=== PATIENT | male | born 1950 | race Caucasian/White ===

== ENCOUNTER → 2024-12-22 | Outpatient (CLI) | payer OTHER, SELFPAY ==
[2024-12-22 16:50] LABS: Basophils # (Auto) 0.1 Thou/mm3 (0.0-0.2); Basophils % (Auto) 1 % (0-2.5); Eosinophils # (Auto) 0.2 Thou/mm3 (0.0-0.5); Eosinophils % (Auto) 2 % (0-10); Hematocrit 44.6 % (41.0-53.0); Hemoglobin 14.6 g/dL (13.5-16.0); Immature Granulocytes % (Auto) 0 % (0-0); Immature Granulocytes Auto 0.02 Thou/mm3 (0.00-0.00); Lymphocytes # (Auto) 1.6 Thou/mm3 (1.0-4.8); Lymphocytes % (Auto) 19 % (10-50); Mean Corpuscular HGB Conc 32.7 g/dl (31.0-37.0); Mean Corpuscular Hemoglobin 27.9 pg (25.0-35.0); Mean Corpuscular Volume 85 fL (80-100); Monocytes # (Auto) 0.7 Thou/mm3 (0.0-0.8); Monocytes % (Auto) 8 % (0-12); Neutrophils # (Auto) 5.8 Thou/mm3 (1.8-7.7); Neutrophils % (Auto) 69 % (37-80); Nucleated Red Blood Cell % 0 /100 WBC (0); Platelet Count 258 Thou/mm3 (140-440); RDW Standard Deviation 43.3 fL (35.1-43.9); Red Blood Count 5.24 Miln/mm3 (4.50-5.90); White Blood Count 8.3 Thou/mm3 (3.8-10.6)
[2024-12-22 17:25] LABS: Alanine Aminotransferase 16 U/L (10-49); Albumin, Serum 4.4 gm/dL (3.4-4.8); Albumin/Globulin Ratio 1.8 (1.2-2.2); Alkaline Phosphatase 88 U/L (46-116); Anion Gap 8 (7-16); Aspartate Amino Transferase 18 U/L (0-34); BUN/Creatinine Ratio 12 Ratio (12-20); Bilirubin,Total 0.7 mg/dL (0.3-1.2); Blood Urea Nitrogen 14 mg/dL (9-23); Calcium 9.2 mg/dL (8.3-10.6); Calcium (Corrected) 9.2 mg/dL (8.5-10.1); Carbon Dioxide 30.9 mMol/L (20.0-31.0); Cardiac Risk Estimate 3.7 RATIO (4.0-6.7); Chloride 106 mMol/L (98-107); Cholesterol 175 mg/dL (132-200); Creatinine (Component) 1.2 mg/dL (0.6-1.3); Globulin 2.5 gm/dL (2.3-3.5); Glucose 103 mg/dL (74-106); HDL Cholesterol 47 mg/dL (40-60); LDL Cholesterol,Calculated 112 mg/dL (0-130); Osmolality,Calculated 289 (275-295); Potassium 5.3 mMol/L (3.4-5.1); Sodium 145 mMol/L (136-145); Thyroid Stimulating Hormone 2.43 uIU/mL (0.55-4.78); Total Protein 6.9 gm/dL (5.7-8.2); Triglycerides 79 mg/dL (30-150); eGFR > 60 See Note
== END | disposition home or self-care (01) ==
LOC: COPL 15:22
PROVIDERS: PCP Family Medicine; Referring Provider Nurse Practitioner Family; Visit Provider Nurse Practitioner Family
DX: Z00.00 Encounter for general adult medical examination without abnormal findings (principal); I10 Essential (primary) hypertension
CPT/HCPCS: 36415; 80053; 80061; 84443; 85025

== ENCOUNTER → 2024-12-26 | Outpatient (CLI) | payer OTHER, SELFPAY ==
[2025-01-01 07:08] LABS: Fecal Globin Result NOT DETECTED (NOT DETECTED)
== END | disposition home or self-care (01) ==
LOC: SLDO 13:38
PROVIDERS: PCP Nurse Practitioner Family; Referring Provider Nurse Practitioner Family; Visit Provider Nurse Practitioner Family
DX: Z00.00 Encounter for general adult medical examination without abnormal findings (principal)
CPT/HCPCS: 82274; G0328

== ENCOUNTER 2025-04-16 09:31 | Emergency (ER) | payer OTHER, SELFPAY ==
[2025-04-16 09:51] VITALS: BP 170/68; PULSE 100; RESP 18; TEMP 37.4; O2SAT 99
--- NOTE | 2025-04-16 10:17 | EDNOTE_ITS ---
<Statement entered by Abeba Chaudhry MD - 04/23/25 06:24> As co-signing physician, I was present and available for consult prn. I concur with the plan and care as documented by the midlevel provider. ED Male Genitalurinary RME/HPI General Chief complaint: General Adult/Misc Complain Stated complaint: BLADDER PROBLEMS Time Seen by Provider: 04/16/25 09:50 Source: patient Arrival date/time: 04/16/25 09:31 74-year-old male with no known medical history presents to the emergency room with a chief complaint of difficulty urinating and pain with urination x 1 month Mode of arrival: ambulatory Limitations: no limitations Related Data Previous Rx's ?Medication ?Instructions ?Recorded cephalexin 500 mg capsule 500 mg PO BID 7 days #14 cap s 04/16/25 tamsulosin 0.4 mg capsule (Flomax) 0.4 mg PO QDAY #30 caps 04/16/25 Allergies Allergy/AdvReac Type Severity Reaction Status Date / Time No Known Allergies Allergy Verified 04/16/25 09:34 Review of Systems Review of Systems Systems Reviewed: All systems reviewed, normal except as documented Constitutional Constitutional: Reports system reviewed and no additional complaints, except as documented, Denies fatigue, Denies fever(s), Denies headache(s) and Denies weakness Eyes Eyes: Reports system reviewed and no additional complaints, except as documented, Denies blurry vision and Denies change in vision ENT Ears, Nose, Mouth, and Throat: Reports system reviewed and no additional complaints, except as documented, Denies otalgia, Denies headache(s), Denies nasal congestion, Denies throat swelling and Denies vertigo Cardiovascular Cardiovascular: Reports system reviewed and no additional complaints, except as documented, Denies chest pain, Denies dyspnea and Denies dyspnea on exertion Respiratory Respiratory: Reports system reviewed and no additional complaints, except as documented, Denies chest congestion, Denies cough, Denies dyspnea, Denies dyspnea on exertion and Denies wheezing Gastrointestinal Gastrointestinal: Reports system reviewed and no additional complaints, except as documented, Denies abdominal pain, Denies cramping, Denies nausea and Denies vomiting Genitourinary Genitourinary: Reports system reviewed and no additional complaints, except as documented, Reports difficulty urinating, Reports dysuria and Reports hematuria Musculoskeletal Musculoskeletal: Reports system reviewed and no additional complaints, except as documented and Denies back pain Integumentary/Breasts Skin/Breast: Reports system reviewed and no additional complaints, except as documented and Denies wounds Neurologic Neurologic: Reports system reviewed and no additional complaints, except as documented, Denies confusion, Denies headache(s), Denies lack of coordination, Denies vertigo and Denies weakness Psychiatric Psychiatric: Reports system reviewed and no additional complaints, except as documented, Denies anxiety, Denies confusion, Denies depression, Denies paranoia, Denies suicidal ideation and Denies tactile hallucinations Endocrine Endocrine: Reports system reviewed and no additional complaints, except as documented and Denies fatigue Hematologic/Lymphatic Hematologic/Lymphatic: Reports system reviewed and no additional complaints, except as documented and Denies lymphadenopathy Allergic/Immunologic Allergic/Immunologic: Reports system reviewed and no additional complaints, except as documented, Denies throat swelling, Denies urticaria and Denies wheezing Past Medical History Social History SMOKING STATUS: Never smoker ED Exam General Limitations: Present no limitations General appearance: Present alert and in no apparent distress Head Head exam: Present atraumatic Eye Eye exam: Present normal appearance, PERRL and EOMI ENT ENT exam: Present normal exam, normal oropharynx and mucous membranes moist Neck Neck exam: Present normal inspection, full ROM and trachea midline Chest Chest inspection: Present normal inspection and symmetric chest wall rise Respiratory Respiratory exam: Present normal lung sounds bilaterally Cardiovascular Cardiovascular exam: Present regular rate, normal rhythm and normal heart sounds Abdominal Exam Abdominal exam: Present soft and normal bowel sounds; Absent distention, tender ness, guarding, rebound or rigidity Extremities Exam Extremities exam: Present normal inspection and full ROM Back Exam Back exam: Present normal inspection and full ROM Neurological Exam Neurological exam: Present alert, oriented X3 and CN II-XII intact Psychiatric Psychiatric exam: Present normal affect and normal mood Skin Skin exam: Present warm, dry, intact and normal color Course Quality Measures none Orders Category Date Time Status Yusuf [Urinary Catheter] QS Care 04/16/25 10:02 Active UA [Urinalysis] Stat Lab 04/16/25 10:48 Completed Urine Culture Stat Lab 04/16/25 10:48 Received Lidocaine Jelly 2% Urojet [Xylocaine Jelly 2% Urojet] Med 04/16/25 10:30 Discontinued See Dose Instructions TOP X1 ONE Vital Signs Vital signs: Vital Signs Temperature 99.3 F 04/16/25 09:51 Pulse Rate 100 04/16/25 09:51 Respiratory Rate 18 04/16/25 09:51 Blood Pressure 170/68 H 04/16/25 09:51 Pulse Oximetry (%) 99 04/16/25 09:51 Oxygen Delivery Method Room Air 04/16/25 09:51 O2 saturation 99% within normal limits Urogenital - Male MDM Narrative MDM Narrative:: 74-year-old male with no known medical history presents to the emergency room with a chief complaint of difficulty urinating and pain with urination x 1 month Patient is hemodynamically stable and in no apparent distress Physical examination shows tenderness and pain to the patient's lower part of his abdomen. The patient had a Yusuf catheter placed and about 1100 mL of urine drained. Yusuf catheter was then placed on the leg bag and attached to the patient's leg. The patient was discharged with antibiotics. UA was negative for any UTI. Patient was educated to follow-up with his primary care provider as he will need a referral to a urologist for further management Patient was discharged and educated to follow-up with primary care provider in the next 24 to 48 hours and return to the emergency room for any evidence of worsening signs or symptoms Patient data External records reviewed:: [facility] previous records Clinical information provided by:: patient Social determinants that could affect healthcare access:: none Patient has the following chronic illnesses:: No chronic illness How is presenting disease/condition affected by chronic disease/condition?: no chronic disease Evaluation data The following diagnostics were reviewed and interpreted by me:: lab results and radiology exam(s) Lab and/or radiology exams considered but not ordered:: Labs and radiology exams considered and ordered Interpretation Summary: N/A Medications / Prescriptions Medications or Prescriptions considered but not ordered:: Medication given Medication administrations:: Medication Administration History Discontinued Medications Lidocaine HCl (Lidocaine Jelly 2% (Urojet) 10 Ml Tube) 0 ml TOP X1 ONE Stop: 04/16/25 10:31 Last Admin: 04/16/25 10:52 Dose: 10 ml Documented By: ASHLEIGH Medication given Consultations Consultation(s) initiated? (list below): No Diagnosis Urogenital Male Differential Diagnosis: urinary tract infection, epididymitis, prostatitis and acute retention of urine Most likely diagnosis given after review of the tests above:: Acute retention of urine Admission Indicated Admission indicated?: not indicated Admission Request Was there a request for admission?: No Disposition Plan Disposition Plan: Discharge Discharge Attestation Discharge Attestation: The patient and all family members were given an opportunity to ask questions and understood the discharge instructions. Discharge instructions specifically effects, indications for sooner follow up or return to the emergency department, and the expected course of current diagnosis. Patient condition: Stable Discharge Plan Plan Patient Disposition: HOME (Self Care) Discharge Disposition comment: Stable Prescriptions/Referrals Prescriptions/Med Rec: New tamsulosin [Flomax] 0.4 mg capsule 0.4 mg PO QDAY Qty: 30 0RF cephalexin 500 mg capsule 500 mg PO BID 7 Days Qty: 14 0RF Referrals: Soraida Cruz NP [Primary Care Provider] - In 1 week Problem List Clinical Impression: Acute urinary retention Patient/Caregiver Discharge Instructions Education Materials: ED Urinary Retention, Male Additional Instructions: Please follow-up with your primary care provider in the next 24 to 48 hours Your primary care provider will send a referral to urologist to help you with your prostate issue. A urinary catheter was placed please keep it in place until you are seen and cleared by your urologist. For any evidence of worsening signs or symptoms return to the emergency room immediately Print Language: Tamazight Stand Alone Forms: Yee Award Info., Patient Portal Info Letter PA/MYLA Supervising Physician ILEANA/MYLA Supervising Physician: Dr. Mak
[2025-04-16] MEDS: LIDOCAINE JELLY 2% (Urojet) 10 ML TUBE TOP (10:52)
[2025-04-16 11:00] LABS: Collection Type, Urine Clean Catch
[2025-04-16 11:23] LABS: Bilirubin,Urine Negative (Negative); Blood,Urine Trace (Negative); Clarity,Urine Clear (Clear/Hazy); Color,Urine Yellow (Lt Yel-Yel); Glucose, Urine Negative (Negative); Ketones,Urine Negative (Negative); Leukocyte Esterase,Urine Negative (Negative); Nitrite,Urine Negative (Negative); PH,Urine 6.0 (5.0-7.0); Protein,Urine 2+ (Neg - Trace); RBC,Urine 15 /hpf (0-3); Specific Gravity,Urine 1.021 (1.001-1.035); Squamous Epithelial Cell,Urine < 1 /hpf (0-5); Urobilinogen,Urine Negative mg/dL (0.0-1.0); WBC,Urine 1 /hpf (0-5)
[2025-04-16 15:05] VITALS: BP 138/79; PULSE 72; RESP 16; TEMP 36.7; O2SAT 97
== END 2025-04-16 15:06 | disposition home or self-care (01) ==
PROVIDERS: Emergency Provider Nurse Practitioner Family; PCP Nurse Practitioner Family
DX: R33.9 Retention of urine, unspecified (principal)
CPT/HCPCS: 51702; 81001; 87086; 99284; A4314

== ENCOUNTER → 2025-04-20 | Outpatient (CLI) | payer OTHER, SELFPAY ==
[2025-04-20 11:37] LABS: PSA Medicare Annual Scrn 14.31 ng/mL (0-4.00)
== END | disposition home or self-care (01) ==
LOC: COPL 10:38
PROVIDERS: PCP Nurse Practitioner Family; Referring Provider Nurse Practitioner Family; Visit Provider Nurse Practitioner Family
DX: Z12.5 Encounter for screening for malignant neoplasm of prostate (principal)
CPT/HCPCS: 36415; 84153; G0103

== ENCOUNTER 2025-06-15 09:10 | Day surgery (SDC) | payer OTHER, SELFPAY ==
--- NOTE | 2025-06-13 07:00 | EKG_ITS ---
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
[2025-06-13 11:47] VITALS: BMI 42.3
[2025-06-13 12:24] LABS: Collection Type, Urine Catheter
[2025-06-13 12:40] LABS: Basophils # (Auto) 0.1 Thou/mm3 (0.0-0.2); Basophils % (Auto) 1 % (0-2.5); Eosinophils # (Auto) 0.2 Thou/mm3 (0.0-0.5); Eosinophils % (Auto) 3 % (0-10); Hematocrit 43.9 % (41.0-53.0); Hemoglobin 14.0 g/dL (13.5-16.0); Immature Granulocytes Auto 0.01 Thou/mm3 (0.00-0.00); Lymphocytes # (Auto) 1.2 Thou/mm3 (1.0-4.8); Lymphocytes % (Auto) 15 % (10-50); Mean Corpuscular HGB Conc 31.9 g/dl (31.0-37.0); Mean Corpuscular Hemoglobin 27.9 pg (25.0-35.0); Mean Corpuscular Volume 88 fL (80-100); Monocytes # (Auto) 0.7 Thou/mm3 (0.0-0.8); Monocytes % (Auto) 8 % (0-12); Neutrophils # (Auto) 6.1 Thou/mm3 (1.8-7.7); Neutrophils % (Auto) 74 % (37-80); Nucleated Red Blood Cell # 0.00 Thou/mm3 (0.00-0.00); Nucleated Red Blood Cell % 0 /100 WBC (0); Platelet Count 247 Thou/mm3 (140-440); RDW Standard Deviation 43.4 fL (35.1-43.9); Red Blood Count 5.02 Miln/mm3 (4.50-5.90); White Blood Count 8.2 Thou/mm3 (3.8-10.6)
[2025-06-13 12:55] LABS: Alanine Aminotransferase 19 U/L (10-49); Albumin, Serum 4.7 gm/dL (3.4-4.8); Albumin/Globulin Ratio 2.4 (1.2-2.2); Alkaline Phosphatase 95 U/L (46-116); Anion Gap 9 (7-16); Aspartate Amino Transferase 21 U/L (0-34); BUN/Creatinine Ratio 15 Ratio (12-20); Bilirubin,Total 0.7 mg/dL (0.3-1.2); Blood Urea Nitrogen 16 mg/dL (9-23); Calcium 9.3 mg/dL (8.3-10.6); Calcium (Corrected) 9.3 mg/dL (8.5-10.1); Carbon Dioxide 28.3 mMol/L (20.0-31.0); Chloride 106 mMol/L (98-107); Creatinine (Component) 1.1 mg/dL (0.6-1.3); Estimated Creatinine Clearance 92.4 mL/min (>60); Globulin 2.0 gm/dL (2.3-3.5); Glucose 104 mg/dL (74-106); Osmolality,Calculated 286 (275-295); Potassium 4.6 mMol/L (3.4-5.1); Sodium 143 mMol/L (136-145); Total Protein 6.7 gm/dL (5.7-8.2); eGFR > 60 See Note
[2025-06-13 13:23] LABS: Bacteria,Urine Rare; Bilirubin,Urine Negative (Negative); Blood,Urine 3+ (Negative); Clarity,Urine Turbid (Clear/Hazy); Color,Urine Yellow (Lt Yel-Yel); Glucose, Urine Negative (Negative); Ketones,Urine Negative (Negative); Leukocyte Esterase,Urine Positive (Negative); Nitrite,Urine Negative (Negative); PH,Urine 6.0 (5.0-7.0); Protein,Urine 2+ (Neg - Trace); RBC,Urine 60 /hpf (0-3); Specific Gravity,Urine 1.024 (1.001-1.035); Squamous Epithelial Cell,Urine < 1 /hpf (0-5); Urobilinogen,Urine Negative mg/dL (0.0-1.0); WBC,Urine 193 /hpf (0-5)
--- NOTE | 2025-06-14 14:10 | ESHP_ITS ---
RE: GEO MALHOTRA : 1950 DATE OF ADMISSION: 06/15/2025 HISTORY OF PRESENT ILLNESS: Patient is a 74-year-old gentleman. He was referred to me with a history of urinary retention and elevated PSA. His PSA is 14.31. Patient had previous history of slow urinary stream, passing small amount of urine before he went in urinary retention. There is no history of urinary burning, no blood in the urine, no history of kidney stones. PAST SURGICAL HISTORY: Anal fistula, vasectomy in the past. SOCIAL HISTORY: Patient has no children. ALLERGIES: NONE KNOWN. PAST MEDICAL HISTORY: He has a history of hypertension. HOME MEDICATIONS: He takes; 1. Norvasc. 2. Tamsulosin once a day. PHYSICAL EXAMINATION: HEENT: Normal. NECK: Supple. LUNGS: Clear. HEART: Sounds are normal. ABDOMEN: He is very obese, 315 pounds is his weight. GENITOURINARY: Phallus is normal. Testes are down in the scrotum. Rectal examination revealed moderately enlarged smooth prostate. IMPRESSION: 1. Prostatic obstruction. 2. Urinary retention. 3. Indwelling Yusuf catheter. 4. Prostatism. 5. History of elevated PSA of 14.31. 6. Morbid obesity. PLAN: Cystoscopy, transrectal prostatic ultrasound with ultrasound guided prostatic needle biopsy. Planned procedure risks and complications have been discussed with the patient. Patient has understood them and agreed to proceed. DT: 13:54:17 TT: 14:06:00 Ref: [id number] - TID: [id number]
--- NOTE | 2025-06-14 14:41 | SUR.PREOP ---
EKG reviewed with Dr Griffin.
--- NOTE | 2025-06-14 15:05 | SUR.PREOP ---
Pt did not answered, message left for pt to come in at 0930 tomorrow.
--- NOTE | 2025-06-14 15:10 | SUR.PREOP ---
Confirm with pt to come in at 0930 tomorrow.
[2025-06-15 10:13] VITALS: BP 143/89; PULSE 109; RESP 18; TEMP 36.7; O2SAT 95; BMI 39.9
--- NOTE | 2025-06-15 11:30 | XR_ITS ---
EXAMINATION: Transrectal prostate sonography Date and time: June 15, 2025, 1153 hours INDICATIONS: Prostate ultrasound guidance for biopsies by physician today Technique and findings: Transrectal prostate sonographic images Prostate volume 43.21 cc IMPRESSION: Transrectal prostate sonography
[2025-06-15 12:06] VITALS: BP 145/91; PULSE 97; RESP 19; TEMP 36.3; O2SAT 100
--- NOTE | 2025-06-15 12:06 | SUR.PHASEII ---
pt received from OR in recovery bay 5. pt awake and alert, breathing unlabored on room. v/s stable. pt has floyd cath in place. report received from Armen KEYES and Mo QUIROZ.
[2025-06-15 12:10] VITALS: BP 139/103; PULSE 103; RESP 19; TEMP 36.3; O2SAT 98
[2025-06-15 12:15] VITALS: BP 160/99; PULSE 101; RESP 20; TEMP 36.2; O2SAT 99
[2025-06-15 12:20] VITALS: BP 170/100; PULSE 102; RESP 20; TEMP 36.2; O2SAT 100
[2025-06-15 12:35] VITALS: BP 164/99; PULSE 91; RESP 20; TEMP 36.3; O2SAT 97
--- NOTE | 2025-06-15 12:55 | SUR.PHASEII ---
pt awake and alert, breathing unlabored on room air. v/s stable. pt has floyd cath in place. pt able to ambualte to wheelchair with steady gait. d/c instructions given with Trisha in room, all questions answered. pt d/c via wheelchair with all belongings.
--- NOTE | 2025-06-15 13:10 | ESOP_ITS ---
RE: GEO MALHOTRA : 1950 DATE OF OPERATION: 06/15/2025 PREOPERATIVE DIAGNOSES: Prostatism, prostatic obstruction, elevated PSA, urinary retention, indwelling Yusuf catheter. POSTOPERATIVE DIAGNOSES: Prostatism, prostatic obstruction, elevated PSA, urinary retention, indwelling Yusuf catheter. PROCEDURES PERFORMED: Cystoscopy, urethral dilatation, transrectal prostatic ultrasound with ultrasound guided prostatic needle biopsy, and insertion of a new Yusuf catheter. ANESTHESIA: Monitored anesthesia by WALI Ayers. INDICATION: Patient is 74-year-old gentleman with history of urinary retention, prostatism, and prostatic obstruction. He had nocturia and slowing urinary stream. He has been carrying Yusuf catheter for about 2 months. He was seen by me. He has an elevated PSA of 14.31 and he on rectal exam has a moderately enlarged prostate with some firmness. He is now scheduled to have cystoscopy and transrectal prostatic ultrasound with ultrasound guided prostatic needle biopsy. Planned procedure, risks, and complications have been discussed with the patient. Patient has understood them and agreed to proceed. After the patient was brought to the operating table under adequate monitored anesthesia and dorsal lithotomy position, the Yusuf catheter from the bladder was removed. Parts were prepped and draped in the usual fashion. Cystoscopy was then carried out, which revealed adequate urethral meatus, normal-appearing urethra, moderately enlarged prostate, right lobe is the bigger than left. The scope was introduced into the bladder. The residual urine is low because patient had a Yusuf catheter in. Residual urine was collected for culture and sensitivity examination. There are some changes of catheter cystitis in view of his Yusuf catheter, which has been in for about 2 months. There are no intravesical stones or tumors. Ureteral orifices are found to be normal in position and appearance. Scope was withdrawn. Urethra was dilated. Patient was then turned in left lateral position. Transrectal prostatic ultrasound was carried out. Biopsies were obtained from both lobes using ultrasound guidance. Prostatic volume was measured at 43.2 cubic cm. At the end of the procedure, patient was turned in supine position and in a sterile condition a 16-Azeri Yusuf catheter was placed back into the bladder. This is a new catheter and was connected to a leg bag. Patient tolerated the entire procedure well and left the room in good condition. PLAN: We will wait for the biopsy report. DT: 12:18:39 TT: 13:08:00 Ref: [id number] - TID: [id number]
== END 2025-06-15 12:55 | disposition home or self-care (01) ==
PROVIDERS: Anesthesiology; PCP Nurse Practitioner Family; Referring Provider Surgery; Visit Provider Surgery
PROC: (CPT 55700; principal; 2025-06-15 11:15)
PROC: 0TJB8ZZ Inspection of Bladder, Via Natural or Artificial Opening Endoscopic (ICD-10-PCS; CPT 52000; 2025-06-15 11:15)
DX: C61 Malignant neoplasm of prostate (principal); E66.01 Morbid (severe) obesity due to excess calories; Z68.41 Body mass index [BMI] 40.0-44.9, adult
CPT/HCPCS: 52281; 55700; 36415; 76942; 80053; 81001; 85025; 87086; 93005; A4217; A4649; J0694; J2704

== ENCOUNTER 2025-06-26 18:47 | Emergency (ER) | payer OTHER, SELFPAY ==
[2025-06-26 19:19] VITALS: BP 161/80; PULSE 108; RESP 18; TEMP 37.2; O2SAT 95; BMI 40.4
--- NOTE | 2025-06-26 19:23 | PD.EDMALE ---
ED Male Genitalurinary RME/HPI General Chief complaint: Urogenital-Male Stated complaint: URINARY RETENTION X 10 HRS Time Seen by Provider: 06/26/25 18:53 Source: patient, family, RN notes reviewed and old records reviewed Arrival date/time: 06/26/25 18:47 Mode of arrival: ambulatory Limitations: no limitations RME / HPI RME / HPI Narrative: 74yom presents to ED for urinary retention. Patient reports minimal urine flow this morning now with complete retention the past 4-5 hours. c/o bladder fullness and pressure. Hx of BPH managed by Dr. Huitron. No fever, nausea/vomiting, flank pain or dysuria reported. 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 Related Data Home Medications ?Medication ?Instructions ?Recorded ?Confirmed amlodipine 10 mg-benazepril 40 mg 1 cap PO DAILY 06/13/25 06/13/25 capsule ciprofloxacin HCl 500 mg tablet 500 mg PO BID 06/13/25 06/13/25 (Cipro) Previous Rx's ?Medication ?Instructions ?Recorded tamsulosin 0.4 mg capsule (Flomax) 0.4 mg PO QDAY #30 caps 04/16/25 Allergies Allergy/AdvReac Type Severity Reaction Status Date / Time No Known Allergies Allergy Verified 06/26/25 18:49 Review of Systems Review of Systems Systems Reviewed: All systems reviewed, normal except as documented Constitutional Constitutional: Denies chills and Denies fever(s) Gastrointestinal Gastrointestinal: Reports abdominal pain (Suprapubic), Denies nausea and Denies vomiting Genitourinary Genitourinary: Denies dysuria, Denies flank pain and Denies hematuria Comments: Reports urinary retention Past Medical History Past Medical History CARDIAC: Positive Hypertension GENITOURINARY: Positive Benign Prostatic Hyperplasia Surgical History OTHER SURGICAL HX: Anal fistula repair Social History SMOKING STATUS: Never smoker SUBSTANCE USE: does not use ALCOHOL: Never ED Exam General Limitations: Present no limitations General appearance: Present alert and in no apparent distress Head Head exam: Present atraumatic and normocephalic Eye Eye exam: Present normal appearance, PERRL and EOMI ENT ENT exam: Present normal exam and mucous membranes moist Neck Neck exam: Present normal inspection and full ROM Chest Chest inspection: Present normal inspection and symmetric chest wall rise Respiratory Respiratory exam: Present normal lung sounds bilaterally; Absent respiratory distress Cardiovascular Cardiovascular exam: Present regular rate and normal rhythm Abdominal Exam Abdominal exam: Present soft and other (Mild bladder distention/tenderness); Absent guarding or rebound Extremities Exam Extremities exam: Present normal inspection and full ROM Neurological Exam Neurological exam: Present alert and oriented X3 Psychiatric Psychiatric exam: Present normal affect and normal mood Skin Skin exam: Present warm, dry, intact and normal color Course Quality Measures none Orders Category Date Time Status Yusuf [Urinary Catheter] QS Care 06/26/25 19:24 Completed Lidocaine Jelly 2% Urojet [Xylocaine Jelly 2% Urojet] Med 06/26/25 19:27 Discontinued See Dose Instructions TOP X1 ONE Vital Signs Vital signs: Vital Signs Temperature 99 F 06/26/25 19:19 Pulse Rate 108 H 06/26/25 19:19 Respiratory Rate 18 06/26/25 19:19 Blood Pressure 161/80 H 06/26/25 19:19 Pulse Oximetry (%) 95 06/26/25 19:19 Oxygen Delivery Method Room Air 06/26/25 19:19 Urogenital - Male MDM Narrative MDM Narrative:: 74yom presents to ED for urinary retention. Patient reports minimal urine flow this morning now with complete retention the past 4-5 hours. c/o bladder fullness and pressure. Hx of BPH managed by Dr. Huitron. No fever, nausea/vomiting, flank pain or dysuria reported. 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 Yusuf successfully placed in ED, patient reports significant improvement of symptoms. Encourage close follow-up with Dr. Huitron for further management. Stable for discharge, RTED precautions given. Patient data External records reviewed:: [facility] previous records (04/16/2025 ED visit for urinary retention) Clinical information provided by:: patient and spouse Social determinants that could affect healthcare access:: none Patient has the following chronic illnesses:: BPH How is presenting disease/condition affected by chronic disease/condition?: caused by Evaluation data The following diagnostics were reviewed and interpreted by me:: other (specify) (none) Lab and/or radiology exams considered but not ordered:: UA: patient denies dysuria/hematuria Interpretation Summary: na Medications / Prescriptions Medications or Prescriptions considered but not ordered:: No antibiotics recommended at this time Medication administrations:: Medication Administration History Discontinued Medications Lidocaine HCl (Lidocaine Jelly 2% (Urojet) 10 Ml Tube) 0 ml TOP X1 ONE Stop: 06/26/25 19:28 Last Admin: 06/26/25 20:35 Dose: 10 ml Documented By: AGUS Above medication administered in ED Consultations Consultation(s) initiated? (list below): No Diagnosis Urogenital Male Differential Diagnosis: urinary tract infection, urethritis, epididymitis, prostatitis and acute retention of urine Most likely diagnosis given after review of the tests above:: Urinary retention Admission Indicated Admission indicated?: not indicated Admission Request Was there a request for admission?: No Disposition Plan Disposition Plan: Discharge Discharge Attestation Discharge Attestation: The patient and all family members were given an opportunity to ask questions and understood the discharge instructions. Discharge instructions specifically effects, indications for sooner follow up or return to the emergency department, and the expected course of current diagnosis. Patient condition: Stable Discharge Plan Plan Patient Disposition: HOME (Self Care) Patient condition on transfer: Stable Prescriptions/Referrals Prescriptions/Med Rec: No Action tamsulosin [Flomax] 0.4 mg capsule 0.4 mg PO QDAY Qty: 30 0RF ciprofloxacin HCl [Cipro] 500 mg tablet 500 mg PO BID amlodipine-benazepril 10-40 mg capsule 1 cap PO DAILY Referrals: Soraida Cruz, HUMAN RESOURCES DESIGNATE [Primary Care Provider] - In 1 week Problem List Clinical Impression: Enlarged prostate with urinary retention Patient/Caregiver Discharge Instructions Education Materials: ED Urinary Retention, Male Additional Instructions: Follow up with Dr. Huitron as scheduled. Print Language: Maltese Stand Alone Forms: Yee Award Info., Patient Portal Info Letter PA/MYLA Supervising Physician ILEANA/MYLA Supervising Physician: Ilia
[2025-06-26] MEDS: LIDOCAINE JELLY 2% (Urojet) 10 ML TUBE TOP (20:35)
== END 2025-06-26 21:24 | disposition home or self-care (01) ==
PROVIDERS: Emergency Provider Emergency Medicine; PCP Nurse Practitioner Family
DX: N40.1 Benign prostatic hyperplasia with lower urinary tract symptoms (principal); K60.30 Anal fistula, unspecified; R33.8 Other retention of urine
CPT/HCPCS: 51702; 99282; A4314

== ENCOUNTER → 2025-07-05 | Outpatient (CLI) | payer OTHER, SELFPAY ==
--- NOTE | 2025-07-05 08:30 | XR_ITS ---
Examination: CT pelvis without intravenous contrast. 2-D sagittal and coronal reconstructions. Date and time of exam: July 22, 2025, 0822 hours INDICATIONS: Diagnosis malignant neoplasm prostate 1 month ago, staging CTDI: vol (mGy) : 15.7 DLP: (mGycm) : 730 Technique: Multiple 3 mm axial sections of the pelvis have been obtained with the 64 slice high resolution scanner. 2-D sagittal and coronal reconstructions. Low dose protocols were performed. One or more of the following dose reduction techniques were used; automated exposure control, adjustment of the mA and/or KV according to patient size, use of iterative reconstruction technique. Findings: No hydronephrosis Fat-containing umbilical hernia Normal appendix No bowel obstruction Colonic diverticulosis Normal seminal vesicles Prostate irregular in contour, AP dimension 4.7 cm Contracted urinary bladder with marked urinary bladder wall thickening No common iliac external iliac or common femoral lymphadenopathy Significant osteopenia Advanced disc narrowing L3-L4 L4-L5 L5-S1 No osteoblastic metastatic disease IMPRESSION: Enlarged prostate with irregular contour No findings of metastatic disease
== END | disposition home or self-care (01) ==
PROVIDERS: PCP Surgery; Referring Provider Surgery; Visit Provider Surgery
DX: N40.0 Benign prostatic hyperplasia without lower urinary tract symptoms (principal); C61 Malignant neoplasm of prostate
CPT/HCPCS: 72192

== ENCOUNTER → 2025-07-18 | Outpatient (CLI) | payer OTHER, SELFPAY ==
--- NOTE | 2025-07-18 12:30 | XR_ITS ---
Examination: Bone scan whole body, radioisotope Date and time of exam: July 18, 2025, 1315 hours INDICATIONS: Diagnosis prostate carcinoma 4 weeks ago Technique: Study has been performed with intravenous administration of 24.8 mci 99M technetium MDP. Anterior, posterior whole body images are obtained. Images have been obtained including the lower extremities. Findings: Symmetrical isotope examination IMPRESSION: No pattern diagnostic for osseous metastatic disease
== END | disposition home or self-care (01) ==
PROVIDERS: PCP Nurse Practitioner Family; Referring Provider Surgery; Visit Provider Surgery
DX: C61 Malignant neoplasm of prostate (principal)
CPT/HCPCS: 78306; A9503

== ENCOUNTER 2025-08-03 13:49 | Emergency (ER) | payer OTHER, SELFPAY ==
[2025-08-03 15:30] VITALS: BP 139/76; PULSE 103; RESP 16; TEMP 36.8; O2SAT 95; BMI 40.4
--- NOTE | 2025-08-03 15:45 | EDNOTE_ITS ---
ED Male Genitalurinary RME/HPI General Chief complaint: Urogenital-Male Stated complaint: UNABLE TO URINATE X8HRS Time Seen by Provider: 08/03/25 15:29 Arrival date/time: 08/03/25 13:49 RME / HPI RME / HPI Narrative: 74-year-old male with polyps medical history of prostates CA currently seeing a urologist who had a voiding trial after Yusuf catheter was removed yesterday he proceeded to have good urination all day all the way up until 6 AM when he had his last menstruation event and now he presents to the ER as he has not urinated since then patient does endorse some tingling with urination and frequency. Denies flank pain, nausea, vomiting. Related Data Home Medications ?Medication ?Instructions ?Recorded ?Confirmed amlodipine 10 mg-benazepril 40 mg 1 cap PO DAILY 06/1306/13/25 capsule ciprofloxacin HCl 500 mg tablet 500 mg PO BID 06/13/25 06/13/25 (Cipro) Previous Rx's ?Medication ?Instructions ?Recorded tamsulosin 0.4 mg capsule (Flomax) 0.4 mg PO QDAY #30 caps 04/16/25 ciprofloxacin HCl 500 mg tablet 500 mg PO BID #14 tabs 08/03/25 Allergies Allergy/AdvReac Type Severity Reaction Status Date / Time No Known Allergies Allergy Verified 06/26/25 18:49 ED Exam Narrative Physical exam: Constitutional: Patient alert and oriented. Well appearing. No acute distress. Not toxic appearing. Head: Normocephalic, atraumatic. Eyes: Periorbital regions bilaterally normal to inspection. Conjunctiva clear bilaterally. Sclera anicteric bilaterally. Pupils equal, round, reactive to light bilaterally. Extraocular movements intact bilaterally. Mouth/Throat: Mucous membranes moist. No stridor or muffled voice. No trismus. Handling secretions without difficulty. Airway widely patent. Neck: Supple. Trachea midline. No JVD. No nuchal rigidity. Normal range of motion. Respiratory: Normal effort. No accessory muscle use or respiratory distress. Lungs clear to auscultation bilaterally without rhonchi, wheezes, or crackles. Cardiovascular: RRR. Normal S1/S2. No murmurs or rubs. Radial pulses intact bilaterally. Abdomen: Positive mild suprapubic tenderness and distention. Otherwise abdomen is soft and nontender to palpation. No pulsatile mass. No guarding or rebound. Negative Bradn?s sign. Negative McBurney?s point tenderness. Negative Rovsing?s. Back: No midline tenderness or step-offs. No CVA tenderness to palpation bilaterally. Upper Extremities: No gross deformities. Lower Extremities: No gross deformities. No edema or calf tenderness. Neuro: Speech normal. No gross motor or sensory deficits to upper or lower extremities bilaterally. GCS 15. CN II?XII grossly intact. Skin: Warm, dry, normal color. Psych: Normal affect. Cooperative. Normal insight. Course Quality Measures none Orders Category Date Time Status Bladder Scan NEEDED Care 08/03/25 16:33 Active Yusuf to Leg Bag Routine Care 08/03/25 15:34 Ordered BMP [Basic Metabolic Panel] Stat Lab 08/03/25 15:48 Completed Blood Culture (Lab) Stat Lab 08/03/25 16:40 Received CBC Stat Lab 08/03/25 15:48 Completed Lactic Acid [Lactate (Lactic Acid)] Stat Lab 08/03/25 16:33 Completed Urinalysis, C/S if Indicated Stat Lab 08/03/25 15:34 Ordered Urine Culture Stat Lab 08/03/25 17:33 Ordered Lidocaine Jelly 2% Urojet [Xylocaine Jelly 2% Urojet] Med 08/03/25 17:41 Discontinued See Dose Instructions TOP X1 ONE cefTRIAXone [Rocephin] 1,000 mg Med 08/03/25 17:33 Discontinued Lidocaine 1% Pf Vial 5ml [Xylocaine 1% Pf 5 ml] 2.1 ml IM X1 Reevaluation(s) Reevaluation #1: At the time of reassessment prior to discharge, the patient remains alert and oriented ?3 with GCS 15. Vitals are normal, pain is controlled, and the patient is tolerating oral intake without nausea or vomiting. The patient is agreeable to discharge and verbalizes understanding of the diagnosis, studies, treatment plan, medications (including side effects/precautions), and strict ER return precautions as discussed in the ED. All concerns were addressed, and the patient is comfortable with the plan. Time: 18:27 Vital Signs Vital signs: Vital Signs Temperature 98.3 F 08/03/25 15:30 Pulse Rate 103 H 08/03/25 15:30 Respiratory Rate 16 08/03/25 15:30 Blood Pressure 139/76 H 12/12/25 15:30 Pulse Oximetry (%) 95 08/03/25 15:30 Oxygen Delivery Method Room Air 08/03/25 15:30 Urogenital - Male MDM Narrative MDM Narrative:: 74-year-old male with past medical history of prostate CA who had a voiding trial yesterday and was able to urinate at 6 AM this morning however unable to urinate since then presents to the ER complaining of tingling with urination as well as suprapubic fullness and unable to urinate since that moment. No CVA tenderness or nausea vomiting doubt urosepsis as patient is not toxic appearing Cannot exclude UTI as the precipitant for patient's recurrent urinary retention in the setting prostate CA and given patient states he does have some tingling with urination I will provide him with a course of empiric antibiotics as well as a shot of ceftriaxone here in the ER Yusuf catheter placed and patient tolerated procedure well with leg bag in place advised to follow-up with his PCP and urologist in 1 to 2 days we will provide him with a course of ciprofloxacin as well and strict ER return precautions advised Patient data External records reviewed:: [facility] previous records Clinical information provided by:: patient Social determinants that could affect healthcare access:: none Patient has the following chronic illnesses:: Prostate CA How is presenting disease/condition affected by chronic disease/condition?: caused by Evaluation data The following diagnostics were reviewed and interpreted by me:: lab results Lab and/or radiology exams considered but not ordered:: Additional Labs and radiology considered, but not ordered as they were not clinically indicated at this time. Interpretation Summary: CBC notes a white count of 17.2, neutrophil percentage minimally elevated 89 and neutrophil number minimally elevated 15.3 as well as monocyte number elevated 1.1 immature granulocyte number at 0.08 and immature granulocyte percentage 1% all mildly elevated however there is no bandemia and lactic acid is within normal limits at 1.1 patient is afebrile upon arrival into the ER I suspect that patient's moderate leukocytosis is secondary to an acute stress reaction rather than infectious in nature CMP notes normal renal function with a BUN of 16 creatinine 1.2 and glucose minimally elevated 134 UA pending Medications / Prescriptions Medications or Prescriptions considered but not ordered:: I ordered medications based on the patient?s clinical needs and assessment, as documented in the chart. For medications not prescribed, they were not indicated for the patient's current condition, and I determined they were unnecessary at this time to avoid potential risks or complications. Medication administrations:: Medication Administration History Discontinued Medications Ceftriaxone Sodium 1,000 mg/ (Lidocaine HCl 2.1 ml) 0 mg IM X1 ONE Stop: 08/03/25 17:34 Lidocaine HCl (Lidocaine Jelly 2% (Urojet) 10 Ml Tube) 0 ml TOP X1 ONE Stop: 08/03/25 17:42 Last Admin: 08/03/25 18:11 Dose: 10 ml Documented By: DO As noted Consultations Consultation(s) initiated? (list below): No Diagnosis Urogenital Male Differential Diagnosis: urinary tract infection, acute retention of urine and other Most likely diagnosis given after review of the tests above:: Acute urinary retention Admission Indicated Admission indicated?: not indicated Admission Request Was there a request for admission?: No Disposition Plan Disposition Plan: Discharge Discharge Attestation Discharge Attestation: The patient and all family members were given an opportunity to ask questions and understood the discharge instructions. Discharge instructions specifically effects, indications for sooner follow up or return to the emergency department, and the expected course of current diagnosis. Patient condition: Stable Discharge Plan Plan Patient Disposition: HOME (Self Care) Patient condition on transfer: Stable Prescriptions/Referrals Prescriptions/Med Rec: New ciprofloxacin HCl 500 mg tablet 500 mg PO BID Qty: 14 0RF No Action tamsulosin [Flomax] 0.4 mg capsule 0.4 mg PO QDAY Qty: 30 0RF ciprofloxacin HCl [Cipro] 500 mg tablet 500 mg PO BID amlodipine-benazepril 10-40 mg capsule 1 cap PO DAILY Referrals: [facility] [Provider Group] - In 1 week Problem List Clinical Impression: Acute retention of urine Patient/Caregiver Discharge Instructions Education Materials: ED Urinary Retention, Male Additional Instructions: Follow up with your primary medical doctor and a urologist he comes in within 48 hours. Return to the Emergency Room immediately for any new, worsening, continuing symptoms or any concerns at all. Return to the Emergency Room within 48 hours if you are unable to follow up with your primary medical doctor and a urologist within 48 hours. Print Language: [place] Citizen Stand Alone Forms: Yee Award Info., Patient Portal Info Letter ILEANA/MYLA Supervising Physician PA/MYLA Supervising Physician: Dr. Fong
[2025-08-03 15:59] LABS: Basophils # (Auto) 0.1 Thou/mm3 (0.0-0.2); Basophils % (Auto) 0 % (0-2.5); Eosinophils # (Auto) 0.0 Thou/mm3 (0.0-0.5); Eosinophils % (Auto) 0 % (0-10); Hematocrit 43.2 % (41.0-53.0); Hemoglobin 14.1 g/dL (13.5-16.0); Immature Granulocytes Auto 0.08 Thou/mm3 (0.00-0.00); Lymphocytes # (Auto) 0.4 Thou/mm3 (1.0-4.8); Lymphocytes % (Auto) 2 % (10-50); Mean Corpuscular HGB Conc 32.6 g/dl (31.0-37.0); Mean Corpuscular Hemoglobin 28.0 pg (25.0-35.0); Mean Corpuscular Volume 86 fL (80-100); Monocytes # (Auto) 1.4 Thou/mm3 (0.0-0.8); Monocytes % (Auto) 8 % (0-12); Neutrophils # (Auto) 15.3 Thou/mm3 (1.8-7.7); Neutrophils % (Auto) 89 % (37-80); Nucleated Red Blood Cell # 0.00 Thou/mm3 (0.00-0.00); Nucleated Red Blood Cell % 0 /100 WBC (0); Platelet Count 208 Thou/mm3 (140-440); RDW Standard Deviation 43.8 fL (35.1-43.9); Red Blood Count 5.04 Miln/mm3 (4.50-5.90); White Blood Count 17.2 Thou/mm3 (3.8-10.6)
[2025-08-03 16:14] LABS: Anion Gap 10 (7-16); BUN/Creatinine Ratio 13 Ratio (12-20); Blood Urea Nitrogen 16 mg/dL (9-23); Calcium 9.3 mg/dL (8.3-10.6); Carbon Dioxide 27.0 mMol/L (20.0-31.0); Chloride 103 mMol/L (98-107); Creatinine (Component) 1.2 mg/dL (0.6-1.3); Estimated Creatinine Clearance 82.6 mL/min (>60); Glucose 134 mg/dL (74-106); Osmolality,Calculated 282 (275-295); Potassium 5.0 mMol/L (3.4-5.1); Sodium 140 mMol/L (136-145); eGFR > 60 See Note
[2025-08-03 16:56] LABS: Lactate (Lactic Acid) 1.1 mMol/L (0.4-2.0)
[2025-08-03] MEDS: LIDOCAINE JELLY 2% (Urojet) 10 ML TUBE TOP (18:11)
[2025-08-03 18:33] LABS: Collection Type, Urine Voided; Squamous Epithelial Cell,Urine 0 /hpf (0-5)
[2025-08-03 18:42] LABS: Bacteria,Urine Rare; Bilirubin,Urine Negative (Negative); Blood,Urine 1+ (Negative); Budding Yeast,Urine Present; Clarity,Urine Turbid (Clear/Hazy); Color,Urine Yellow (Lt Yel-Yel); Glucose, Urine Negative (Negative); Ketones,Urine 1+ (Negative); Leukocyte Esterase,Urine Positive (Negative); Nitrite,Urine Positive (Negative); PH,Urine 6.0 (5.0-7.0); Protein,Urine 1+ (Neg - Trace); RBC,Urine 10 /hpf (0-3); Specific Gravity,Urine 1.018 (1.001-1.035); Urobilinogen,Urine Negative mg/dL (0.0-1.0); WBC,Urine 904 /hpf (0-5)
[2025-08-03 18:43] LABS: Culture Indicated,Urine Yes
== END 2025-08-03 18:55 | disposition home or self-care (01) ==
PROVIDERS: Emergency Provider Physician Assistant
DX: C61 Malignant neoplasm of prostate (principal); R33.8 Other retention of urine; D72.829 Elevated white blood cell count, unspecified
CPT/HCPCS: 36415; 51702; 80048; 81001; 83605; 85025; 87040; 87077; 87086; 87186; 96372; 99283; A4314; J0696; J3490